=== PATIENT | male | born 1935 | race Asian ===

== ENCOUNTER → 2020-08-05 | Outpatient (CLI) | payer MEDICARE ==
--- NOTE | 2020-08-05 14:33 | RAD ---
EXAM: Chest CT without intravenous contrast. HISTORY: Hemoptysis. Pulmonary nodules. TECHNIQUE: Computed tomographic images of the chest were obtained without contrast. Multiplanar refor matting was performed. *One or more of the following individualized dose reduction techniques were utilized for this examina tion: 1. Automated exposure control. 2. Adjustment of the mA and/or kV according to patient size. 3. Use of iterative reconstruction technique. COMPARISON: None. FINDINGS: The exam is limited due to respiratory motion. The heart is upper normal in size. 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 The aortic arch measures 3.9 cm in maximum caliber. There is calcified atherosclerotic plaque involving the aorta, aortic arch great ve ssels and coronary arteries. There is calcification of the aortic valve. There are multiple prominent mediastinal and hilar lymph nodes, a few of which are calcified and consistent with healed granuloma tous disease. The thyroid is unremarkable. There is no pneumothorax or pleural effusion. There is mild emphysema with superimposed peripheral pl eural parenchymal scarring due to fibrosis. There is right greater than left apical pleural-parenchym al scarring. There is bilateral posterior dependent and lower lobe atelectasis and suspected mild for congestion. There are few tiny groundglass and solid nodular opacities within both lungs. The larges t solid nodules measure 8 mm and 7 mm within the right upper lobe. There is a 10 mm nodule containing a few calcifications within the anterior right middle lobe, likely due to healed granulomatous disea se. There is a 4.1 cm simple cyst within the superior right kidney. Follow-up is not routinely recommende d for simple cysts. There is no acute finding involving the upper abdomen. There are degenerative neil nges throughout the spine. There are severe chronic appearing compression fractures of T12, T7 and T6 . No associated central canal stenosis is seen at these levels. IMPRESSION: 1. Limited exam due to respiratory motion. 2. Multiple subcentimeter solid and groundglass nodules within both lungs, the largest of which measu res 8 mm within the right upper lobe. Short-term follow-up with a CT in 3 months is recommended. 3. Pulmonary emphysema with superimposed apical predominant pleural parenchymal scarring, lower lobe predominant fibrosis and mild congestion. The possibility of pneumonic infiltrate is not excluded. Th ere is no consolidated pneumonia. 4. Dilatation of the ascending aorta and aortic arch to a caliber of 3.9 cm. 5. Calcification of the aortic valve and atherosclerosis involving the aorta and aortic branch vessel s. 6. Chronic thoracic vertebral compression fractures. Electronically signed by: Ashley Villatoro MD (08/05/2020 2:31 PM) [id number]
== END ==
LOC: CT 12:36
PROVIDERS: ATTEND Nurse Practitioner Adult Health
DX: R91.8 Other nonspecific abnormal finding of lung field (principal); J43.9 Emphysema, unspecified; J94.8 Other specified pleural conditions; I77.810 Thoracic aortic ectasia; I70.0 Atherosclerosis of aorta; M48.54XA Collapsed vertebra, not elsewhere classified, thoracic region, initial encounter for fracture; N28.1 Cyst of kidney, acquired
CPT/HCPCS: 71250

== ENCOUNTER → 2021-09-08 | Outpatient (CLI) | payer MEDICARE ==
--- NOTE | 2021-09-08 16:59 | RAD ---
CT THORAX WO History: Lung nodule Comparison: CT chest 08/05/2020 Technique: Noncontrast CT of the chest. Findings: Assessment is limited by lack of IV contrast. Cardiovascular: Ectasia of the ascending aorta measuring 4.1 cm at the level of the right pulmonary a rtery. Moderate aortic atherosclerosis. Moderate coronary artery calcification. Mediastinum and celia: Calcified right hilar lymph nodes and subcarinal lymph nodes. No thyroid and es ophagus are unremarkable. Airways, lungs and pleura: Motion artifact limits evaluation of the lung parenchyma. No significant c hange in 6 mm right upper lobe pulmonary nodule (axial series 5 image 88), 9 mm on the right upper lo be nodule (axial 49). There is peripheral interstitial reticulation with bilateral basilar fibrosis w ith honeycombing, progressive from comparison. No effusion or pneumothorax. Upper abdomen: Partially visualized right renal cyst. Osseous structures and soft tissues: Redemonstrated compression fractures of the T6, T7 and T12 verte bral bodies. No acute osseous abnormality identified. Impression: 1. Findings compatible with pulmonary fibrosis with honeycombing at the bilateral lung bases, progre ssive from prior comparison exam. 2. Multiple pulmonary nodules measuring up to 9 mm, not significant changed. No significant new or e nlarging pulmonary nodule. 3. Ectasia of the ascending aorta measuring 4.1 cm at the level of the right pulmonary artery. ------ Exposure: One or more of the following individualized dose reduction techniques were utilized for thi s examination: 1. Automated exposure control 2. Adjustment of the mA and/or kV according to patient size 3. Use of iterative reconstruction technique. Electronically signed by: Jb Collier MD (09/08/2021 4:57 PM) [id number]
== END ==
LOC: CT 11:56
PROVIDERS: ATTEND Internal Medicine Pulmonary Disease
DX: R91.8 Other nonspecific abnormal finding of lung field (principal); I77.819 Aortic ectasia, unspecified site; I70.0 Atherosclerosis of aorta; I25.10 Atherosclerotic heart disease of native coronary artery without angina pectoris; I89.8 Other specified noninfective disorders of lymphatic vessels and lymph nodes; M48.54XA Collapsed vertebra, not elsewhere classified, thoracic region, initial encounter for fracture
CPT/HCPCS: 71250